=== PATIENT | female | born 2000 | race Caucasian/White ===

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

== ENCOUNTER → 2020-03-02 | Outpatient (CLI) | payer OTHER | END | disposition home or self-care (01) | LOC: LABWHC1 08:39 | PROVIDERS: ATTEND Internal Medicine Clinical Cardiac Electrophysiology | DX: Z11.59 Encounter for screening for other viral diseases (principal) | CPT/HCPCS: 87635 ==

== ENCOUNTER 2020-03-03 06:32 | Day surgery (SDC) | payer OTHER ==
[2020-03-02 10:57] VITALS: BMI 21.9
[~2020-03-03 06:32] MED LIST changes: -LACTATED RINGERS 1,000 ML IV SCH; -LIDOCAINE 1% (10MG/ML) FOR IV START INTRADERMA PRN; -LIDOCAINE 1% INJ 10MG/ML (20 ML MDV) ONE; -PROPOFOL 10 MG/ML 20 ML VIAL IV ONE; +SODIUM CHLORIDE 0.9% 1,000 ML IV SCH
[2020-03-03 07:10] VITALS: RESP 16; TEMP 97.4
[2020-03-03 07:15] LABS: Basophils % (A) 1 %; Eosinophils # (A) 0.2 k/uL (0-0.7); Eosinophils % (A) 4 %; HCT 41.6 % (34.0-46.0); Lymphocytes # (A) 1.3 k/uL (1.0-4.8); Lymphocytes % (A) 32 %; MCH 30.2 pg (25.0-35.0); MCHC 33.7 g/dL (31.0-37.0); MCV 89.6 fL (80.0-100.0); Mean Platelet Volume 7.5; Monocytes # (A) 0.3 k/uL (0-1.0); Monocytes % (A) 7 %; Neutrophils # (A) 2.2 k/uL (1.3-7.7); Neutrophils % (A) 54 %; Platelet Count 219 k/uL (150-450); RBC 4.64 m/uL (3.80-5.40); RDW 12.4 % (11.5-15.5); WBC 4.2 k/uL (4.0-11.0)
[2020-03-03] MEDS ORDERED: EPINEPHrine 4 MG in DEXTROSE 5% IN WATER 250 ML IV ONE ×2 (07:15)
[2020-03-03] MEDS ORDERED: LIDOCAINE 1% INJ 10MG/ML (20 ML MDV) ONE (07:26)
[2020-03-03 07:27] LABS: African American GFR (CKD) >90 (>60 ml/min/1.73 sqM); Anion Gap 11 mmol/L; Blood Urea Nitrogen 7 mg/dL (7-17); Calcium 9.5 mg/dL (8.4-10.2); Carbon Dioxide 27 mmol/L (22-30); Chloride 102 mmol/L (98-107); Glucose 89 mg/dL (74-99); Non-African American GFR(CKD) >90 (>60 ml/min/1.73 sqM); Potassium 3.9 mmol/L (3.5-5.1); Sodium 140 mmol/L (137-145)
[2020-03-03] MEDS ORDERED: METOPROLOL TARTRATE 5 MG/5 ML VIAL IVP ONE (07:30)
[2020-03-03] MEDS ORDERED: fentaNYL (PF) 50 MCG/ML 2 ML AMP ONE (07:30)
[2020-03-03] MEDS ORDERED: MIDAZOLAM 2 MG/2 ML VIAL ONE (07:30)
[2020-03-03] MEDS ORDERED: PROPOFOL 10 MG/ML 20 ML VIAL IV ONE (07:30)
[2020-03-03] MEDS ORDERED: LIDOCAINE 1% INJ 10MG/ML (20 ML MDV) SQ ONE (08:10)
--- NOTE | 2020-03-03 09:34 | P.PCN ---
Preoperative Diagnosis: Diagnosis 19-year-old female with History of palpitations Her prolonged QT interval was noted on twelve-lead EKG by Dr. Arvizu No family history of prolonged duration of the QT interval. Initially there was a concern that there was a family history of prolonged QT interval in her dad but it actually turned out that he had coronary artery disease No family history of sudden The twelve-lead EKG in my office showed a QT interval of 480 ms Echo showed preserved LV systolic function and no valvular abnormalities Holter monitor did not show any arrhythmias Stress test showed increased QT interval at baseline but with shortening of QT interval with exercise No arrhythmias at recovery She was brought in for an epinephrine stress test to evaluate for lung daily in view of her mildly increased Baseline QT interval Patient was brought to the EP lab in a fasting state. Written informed consent was obtained prior to the procedure The venous sheath was placed in the right femoral vein, 6-[place] and via this a diagnostic cath was placed in the high right atrium, then to the His bundle area and then to the right ventricle Sinus cycle length 962 ms KS interval 155 ms QRS 110 ms and QT interval 490 ms HV interval 35 ms Sinus node recovery times a 605,400 ms were 1563, 1276 and 1241. AV node Wenckebach block for 20 ms VA Wenckebach block around 550 ms in the baseline mildly sedated state Once the sedation wore off epinephrine stress test was begun and epinephrine was infused through this central line Baseline QT interval of 497 ms, average of 4 beats at a heart rate of 53 beats a minute Epinephrine was then infused were the [facility] protocol After 10 minutes of epinephrine infusion at 0.0-5 g per KG with an average heart rate of 61 beats a minute, the average QT interval was 494 ms At the end of 0.05 g of epinephrine infusion, average heart rate of 75 beats a minute, the average QT interval was 498 ms At the end of 0.1 g per KG, with an average heart rate of 80 beats a minute, the average QT interval was 517 ms At the end of 0.2 mics per KG the average QT interval was 555 ms with T-wave no tching diffusely seen in virtually all leads IV metoprolol was given to reverse epinephrine, for a total of 7.5 mg Patient tolerated the procedure well without any acute complications Lower extremity edema to the procedure showed normal circulation after epinephrine infusion No ventricular arrhythmias were noted Blood pressure remained normal Very brief short bursts of atrial tachycardia were noted, nonsustained, during epinephrine infusion beyond 0.1 g per KG Impression Baseline QT interval. About 490 ms at a heart rate is 60 beats a minute Prolongation of the average QT interval about 517 ms at the end of 0.1 g per KG Increment of 27 ms in the QT interval at the end of 0.1 g per KG Significant prolongation of the QT interval at 0.2 g per KG with notching of the T waves Suggest Start nadolol 10 mg by mouth daily and increase to 20 mg by mouth daily Referred for genetic testing
[2020-03-03] MEDS ORDERED: NADOLOL 20 MG TAB PO STA (09:51)
[2020-03-03 12:26] VITALS: BP 80/40; PULSE 66
== END 2020-03-03 13:40 | disposition home or self-care (01) ==
LOC: CATHEP 06:32
PROVIDERS: ATTEND Internal Medicine Clinical Cardiac Electrophysiology
DX: R94.31 Abnormal electrocardiogram [ECG] [EKG] (principal); Z82.49 Family history of ischemic heart disease and other diseases of the circulatory system; I73.9 Peripheral vascular disease, unspecified; F90.9 Attention-deficit hyperactivity disorder, unspecified type
CPT/HCPCS: 93623; 93619; 80048; 85025; 81025; C1894; C1769 ×2; C1730; J0171; J2250; J2001; J3010; J2704